=== PATIENT | female | born 1965 | race African-American/Black ===

== ENCOUNTER 2018-05-04 05:20 | Emergency (ER) | payer OTHER ==
[~2018-05-04] VITALS: Ht 152.4 cm; Wt 74.0 kg
[2018-05-04] MEDS ORDERED: KETOROLAC 60MG/2ML VIAL IM ONE (06:30)
[2018-05-04 09:17] VITALS: BP 157/91
== END 2018-05-04 09:26 | disposition home or self-care (01) ==
LOC: ER 05:20
DX: S62.396A Other fracture of fifth metacarpal bone, right hand, initial encounter for closed fracture (principal); S62.394A Other fracture of fourth metacarpal bone, right hand, initial encounter for closed fracture; S92.592A Other fracture of left lesser toe(s), initial encounter for closed fracture; J45.909 Unspecified asthma, uncomplicated; I10 Essential (primary) hypertension; X58.XXXA Exposure to other specified factors, initial encounter; Y93.89 Activity, other specified; Y92.89 Other specified places as the place of occurrence of the external cause; Y99.8 Other external cause status; Z88.6 Allergy status to analgesic agent
CPT/HCPCS: 29125; 73130; 73660; 96372; 99283; J1885